=== PATIENT | male | born 1945 | race Caucasian/White ===

== ENCOUNTER 2019-12-21 12:38 | Emergency (ER) | payer OTHER ==
[~2019-12-21] VITALS: Ht 167.6 cm; Wt 81.7 kg
[~2019-12-21 12:38] MED LIST: ATOR40TA PO; Amlodipine Bes2.5 MG PO; Augmentin 875-1 EACH PO; DULO30 PO; HYDR1TAB94 PO; Hydrocodone-Ap1 EA23 PO; TAMS.4ER PO; Zestril40 MG
[2019-12-21] MEDS ORDERED: Robaxin-750750 MG PO (14:16)
[2019-12-21] MEDS ORDERED: Ativan1 MG PO (14:16)
== END 2019-12-21 14:25 | disposition home or self-care (01) ==
LOC: ER 12:38
DX: M43.6 Torticollis (principal); Z88.8 Allergy status to other drugs, medicaments and biological substances; Z79.2 Long term (current) use of antibiotics; Z79.899 Other long term (current) drug therapy; I10 Essential (primary) hypertension; E78.00 Pure hypercholesterolemia, unspecified
CPT/HCPCS: 99283